=== PATIENT | female | born 1945 | race Caucasian/White ===

== ENCOUNTER → 2016-09-17 | Outpatient (CLI) | payer OTHER ==
[~2016-09-17] MED LIST: AMLO-110 PO; ASPI325T4 PO; ATOR-24 PO; BISO2.5T PO; EPP3/2 IM; IBUP-1050 PO
[2016-09-17 12:44] LABS: ALT/SGPT 38 U/L (12-78); AST/SGOT 18 U/L (15-37); BLOOD UREA NITROGEN 29 mg/dl (7-18); BUN/CREATININE RATIO 26.4 (10-20); CALCIUM 8.8 mg/dl (8.5-10.1); CARBON DIOXIDE 29 mmol/L (21-32); CHLORIDE 107 mmol/L (98-107); GLUCOSE 119 mg/dl (70-99); POTASSIUM 3.9 mmol/L (3.5-5.1); SODIUM 142 mmol/L (136-145)
[2016-09-17 12:50] LABS: ALKALINE PHOSPHATASE 95 U/L (45-117); CHOLESTEROL 137 mg/dl (0-200); CHOLESTEROL/HDL RATIO 2.9; HDL CHOLESTEROL 48 mg/dl; LDL CHOLESTEROL CALCULATED 45 mg/dl; TRIGLYCERIDES 219 mg/dl (0-150); VERY LOW DENSITY LIPOPROT CALC 44 mg/dl
== END | disposition home or self-care (01) ==
LOC: C.LABPVFM 08:42
PROVIDERS: ATTEND Family Medicine
DX: E78.5 Hyperlipidemia, unspecified (principal); I10 Essential (primary) hypertension; R17 Unspecified jaundice; R73.01 Impaired fasting glucose

== ENCOUNTER → 2017-03-30 | Outpatient (CLI) | payer OTHER ==
[2017-03-30 13:03] LABS: ESTIMATED AVERAGE GLUCOSE 117 mg/dl; HA1C FLAG Normal (Normal)
[2017-03-30 14:02] LABS: ALT/SGPT 53 U/L (12-78); AST/SGOT 26 U/L (15-37); BLOOD UREA NITROGEN 53 mg/dl (7-18); BUN/CREATININE RATIO 43.6 (10-20); CARBON DIOXIDE 25 mmol/L (21-32); CHLORIDE 102 mmol/L (98-107); CREATININE 1.21 mg/dl (0.60-1.20); GLUCOSE 99 mg/dl (70-99); POTASSIUM 3.3 mmol/L (3.5-5.1); SODIUM 139 mmol/L (136-145)
[2017-03-30 14:04] LABS: ALKALINE PHOSPHATASE 78 U/L (45-117); CHOLESTEROL 131 mg/dl (0-200); CHOLESTEROL/HDL RATIO 3.3; HDL CHOLESTEROL 40 mg/dl; LDL CHOLESTEROL CALCULATED 60 mg/dl; TRIGLYCERIDES 156 mg/dl (0-150); VERY LOW DENSITY LIPOPROT CALC 31 mg/dl
== END | disposition home or self-care (01) ==
LOC: C.LABPVFM 08:48
PROVIDERS: ATTEND Family Medicine
DX: E78.5 Hyperlipidemia, unspecified (principal); I65.29 Occlusion and stenosis of unspecified carotid artery; I10 Essential (primary) hypertension; R73.01 Impaired fasting glucose; T63.441A Toxic effect of venom of bees, accidental (unintentional), initial encounter

== ENCOUNTER → 2017-04-29 | Outpatient (CLI) | payer OTHER ==
[2017-04-29 13:15] LABS: BLOOD UREA NITROGEN 18 mg/dl (7-18); BUN/CREATININE RATIO 15.4 (10-20); CALCIUM 9.1 mg/dl (8.5-10.1); CARBON DIOXIDE 30 mmol/L (21-32); CHLORIDE 104 mmol/L (98-107); CREATININE 1.16 mg/dl (0.60-1.20); GLUCOSE 109 mg/dl (70-99); POTASSIUM 3.8 mmol/L (3.5-5.1); SODIUM 141 mmol/L (136-145)
== END | disposition home or self-care (01) ==
LOC: C.LABPVFM 09:23
PROVIDERS: ATTEND Family Medicine
DX: N18.3 Chronic kidney disease, stage 3 (moderate) (principal)

== ENCOUNTER → 2017-09-03 | Outpatient (CLI) | payer OTHER ==
--- NOTE | 2017-09-07 12:42 | MAMMOGRAPHY REPORT ---
BILATERAL DIGITAL SCREENING MAMMOGRAM TOMOSYNTHESIS WITH CAD: 09/03/2017 CLINICAL HISTORY: Routine screening. Patient has no complaints. TECHNIQUE: Breast tomosynthesis in addition to standard 2D mammography was performed. Current study was also evaluated with a Computer Aided Detection (CAD) system. COMPARISON: Comparison is made to exams dated: 10/11/2015 mammogram, 11/05/2011 mammogram, 03/04/2010 [facility], and 12/28/2007. BREAST COMPOSITION: There are scattered areas of fibroglandular density in both breasts. FINDINGS: No suspicious masses, calcifications, or areas of architectural distortion are noted in ei ther breast. There has been no significant interval change compared to prior exams. Bilateral benign -appearing calcifications are not significantly changed. IMPRESSION: ACR BI-RADS CATEGORY 2: BENIGN There is no mammographic evidence of malignancy. A 1 year screening mammogram is recommended. The pa tient will receive written notification of the results. Approximately 10% of breast cancers are not detected with mammography. A negative mammographic report should not delay biopsy if a clinically suggestive mass is present. Steph Morgan M.D. /:09/03/2017 15:42:30 Leasing Manager: My RUIZ)(M), [facility] letter sent: Normal 1/2 BI-RADS Code: ACR BI-RADS Category 2: Benign
== END | disposition home or self-care (01) ==
LOC: C.MAMM 11:43
PROVIDERS: ATTEND Family Medicine
DX: Z12.31 Encounter for screening mammogram for malignant neoplasm of breast (principal)

== ENCOUNTER → 2017-09-24 | Outpatient (CLI) | payer OTHER ==
[~2017-09-24] MED LIST changes: +ATOR80TA PO; +BYS/5 PO; +FAMO20TA11 PO; +HYDR25TA5 PO; +LOSA100T65 PO; +MAGN400T6 PO; +OMEG120013 PO; +[UNRECOGNIZED DRUG - CODE] PO
[2017-09-24 13:58] LABS: ALBUMIN 3.7 gm/dl (3.4-5.0); ALT/SGPT 35 U/L (12-78); AST/SGOT 19 U/L (15-37); BLOOD UREA NITROGEN 31 mg/dl (7-18); CALCIUM 9.2 mg/dl (8.5-10.1); CARBON DIOXIDE 27 mmol/L (21-32); CHOLESTEROL 150 mg/dl (0-200); CREATININE 1.17 mg/dl (0.60-1.20); GLUCOSE 104 mg/dl (70-99); SODIUM 138 mmol/L (136-145)
[2017-09-24 14:06] LABS: ALKALINE PHOSPHATASE 87 U/L (45-117); LDL CHOLESTEROL CALCULATED 65 mg/dl; TOTAL PROTEIN 7.3 gm/dl (6.4-8.2)
== END | disposition home or self-care (01) ==
LOC: C.LABPVFM 08:31
PROVIDERS: ATTEND Family Medicine
DX: E78.5 Hyperlipidemia, unspecified (principal); I12.9 Hypertensive chronic kidney disease with stage 1 through stage 4 chronic kidney disease, or unspecified chronic kidney disease; R73.01 Impaired fasting glucose; T63.441A Toxic effect of venom of bees, accidental (unintentional), initial encounter; M65.319 Trigger thumb, unspecified thumb; N18.3 Chronic kidney disease, stage 3 (moderate)

== ENCOUNTER 2017-10-23 04:55 | Inpatient (IN) | payer OTHER ==
[2017-09-28 13:45] VITALS: Ht 157.5 cm; Wt 68.7 kg
--- NOTE | 2017-09-28 14:05 | PAT Medication Instructions ---
Service Date Sep 28, 2017. Current Home Medication List Aspirin (Aspirin), 325 MG PO QAM Atorvastatin (Lipitor), 80 MG PO QAM Epinephrine (Epipen), 0.3 MG IM UD Famotidine (Pepcid), 20 MG PO QD PRN for Heartburn Hydrochlorothiazide (Hydrochlorothiazide), 1 TAB PO QAM Ibuprofen (Advil), 600 MG PO QID PRN Losartan Potassium (Cozaar), 100 MG PO QAM Magnesium Oxide (Mag-Ox), 400 MG PO QAM Multiple Vitamins W/ Minerals (One Daily Multivitamin Wo), 1 TAB PO QAM Nebivolol Hcl (Bystolic), 5 MG PO QAM [place]-3 Fatty Acids (Fish Oil), 1 TAB PO QAM Medication Instructions For Your Scheduled Surgery -Contact your surgeon for instructions for: Aspirin (Aspirin), 325 MG PO QAM Ibuprofen (Advil), 600 MG PO QID PRN -Continue as directed: Epinephrine (Epipen), 0.3 MG IM UD - Hold the following medications 2 weeks prior to surgery: [place]-3 Fatty Acids (Fish Oil), 1 TAB PO QAM - Hold the following medications the morning of surgery: Hydrochlorothiazide (Hydrochlorothiazide), 1 TAB PO QAM Losartan Potassium (Cozaar), 100 MG PO QAM Magnesium Oxide (Mag-Ox), 400 MG PO QAM Multiple Vitamins W/ Minerals (One Daily Multivitamin Wo), 1 TAB PO QAM - Take the following medications the morning of surgery with a sip of water: Atorvastatin (Lipitor), 80 MG PO QAM Famotidine (Pepcid), 20 MG PO QD PRN for Heartburn (if needed) Nebivolol Hcl (Bystolic), 5 MG PO QAM - Take the following medications as scheduled the night before surgery: Famotidine (Pepcid), 20 MG PO QD PRN for Heartburn (if needed) If you have any questions please call us at [phone] or [phone] or [phone]
--- NOTE | 2017-09-28 14:59 | HISTORY & PHYSICAL EXAMINATION ---
DATE OF ADMISSION: 10/23/2017 SUBJECTIVE CHIEF COMPLAINT: Right knee pain. HISTORY OF PRESENT ILLNESS: The patient is a 72-year-old female who presented to the office with right knee pain. She has tried cortisone injections, nonsteroidal anti-inflammatories and physical therapy with no relief. She would like to proceed with a right total knee arthroplasty. PAST MEDICAL HISTORY: Significant for hypertension, hypercholesterolemia, and osteoarthritis. PAST SURGICAL HISTORY: Right knee meniscectomy, carotid endarterectomy, hysterectomy, appendectomy, and tonsillectomy. SOCIAL HISTORY: She drinks 2-3 glasses of wine a week. She denies smoking or tobacco use. She denies IV or illegal drug use. She is currently retired. FAMILY HISTORY: Dad had a history of heart attack. ALLERGIES: SHE IS ALLERGIC TO BEE STINGS. MEDICATIONS: Atorvastatin 80 mg, losartan 100 mg, hydrochlorothiazide 25 mg, aspirin 325 mg, Bystolic 5 mg. REVIEW OF SYSTEMS: She denies headaches, fevers, chills, double vision, blurry vision, sore throat, cough, chest pain, nausea, vomiting, diarrhea, constipation, numbness, tingling, tired, urinary difficulties, thoughts to harm herself or harm others or depression. She does have joint pain and joint stiffness of the right knee. OBJECTIVE: GENERAL APPEARANCE: The patient is a 72-year-old female, sitting in no acute distress. She is well-dressed, well-nourished. She is awake, alert and oriented x3. VITAL SIGNS: She is 5 feet 2 inches tall, 150 pounds. Blood pressure is 138/70. HEENT: Normocephalic, atraumatic. Extraocular movements are intact. Mucosa was moist. No septal deviation. NECK: Supple with no lymphadenopathy, no JVD, no thyromegaly. HEART: Regular rate and rhythm with no murmurs or gallops. LUNGS: Clear to auscultation. No wheezing or rhonchi. ABDOMEN: Soft, nontender, nondistended. Normal bowel sounds, no hepatosplenomegaly. EXTREMITIES: Paying particular attention to the right knee. She is able to extend to 0 degrees and flex to 90 degrees. She has medial joint line tenderness. Ligaments are intact. Strength is 4/5 for flexion and extension. NEUROLOGIC: Cranial nerves II through XII were tested. Cranial nerves II-XII are intact. Pulses were compared bilaterally and were equal. IMPRESSION: Right knee primary osteoarthritis. PLAN: The patient is scheduled for a right total knee arthroplasty. She has failed conservative therapies and would like to proceed with scheduled surgery. Risks and benefits of surgery were discussed today including but not limited to infection, DVT, pain, stiffness, need for revision surgery, failure to relieve all symptoms, progressive arthritis, damage to blood vessels, damage to nerves, anesthesia risks and were all discussed with the patient and she understands these risks and wishes to proceed. All questions were answered to her satisfaction. She will remain on the aspirin 325 mg daily. At discharge, she would like to go home with outpatient physical therapy. JULI
--- NOTE | 2017-09-28 15:03 | DIAGNOSTIC IMAGING REPORT ---
CHEST 2 VIEWS ROUTINE CLINICAL HISTORY: PAT preoperative evaluation COMPARISON STUDY: 04/18/2014 FINDINGS: The bones soft tissues and hemidiaphragms are normal. The cardiomediastinal silhouette is normal. The lungs are clear. The pulmonary vasculature is normal. IMPRESSION: Negative chest. The above report was generated using voice recognition software. It may contain grammatical, syntax or spelling errors. Electronically signed by: Sam Mcnulty M.D. 09/28/2017 3:01 PM Dictated Date/Time: 09/28/2017 3:01 PM
[2017-09-28 15:49] LABS: BASO % 0.2 %; BASO ABS # 0.01 K/uL (0-0.2); EOS % 3.9 %; EOS ABS # 0.23 K/uL (0-0.5); HEMATOCRIT 35.5 % (37-47); HEMOGLOBIN 11.7 g/dL (12.0-16.0); IG# 0.01 K/uL (0.00-0.02); LYMPH % 27.7 %; LYMPH ABS # 1.64 K/uL (1.2-3.4); MEAN CELL VOLUME 96.5 fL (80-100); MEAN CORPUSCULAR HEMOGLOBIN 31.8 pg (25-34); MEAN PLATELET VOLUME 10.7 fL (7.4-10.4); MONO % 7.1 %; MONO ABS # 0.42 K/uL (0.11-0.59); NEUT % 60.9 %; NEUT ABS # 3.61 K/uL (1.4-6.5); PLATELET COUNT 227 K/uL (130-400); RED CELL DISTRIBUTION WIDTH CV 12.5 % (11.5-14.5); RED CELL DISTRIBUTION WIDTH SD 43.7 fL (36.4-46.3); WHITE BLOOD COUNT 5.92 K/uL (4.8-10.8)
[2017-09-28 15:53] LABS: PTT PATIENT 25.1 SECONDS (21.0-31.0)
[2017-09-29 06:01] LABS: HEMOGLOBIN A1C 5.9 % (4.5-5.6)
[~2017-10-23] VITALS: Ht 157.5 cm; Wt 68.7 kg
[2017-10-23] VITALS (10 sets, daily range): BP systolic 138–199; BP diastolic 67–85; PULSE 62–84; TEMP 36.4–36.8; O2SAT 97–100
[~2017-10-23 04:55] MED LIST changes: -AMLO-110 PO; -ATOR-24 PO; -BISO2.5T PO
[2017-10-23] MEDS ORDERED: METOCLOPRAMIDE HCL 10 MG TAB PO SCH (06:00)
[2017-10-23] MEDS ORDERED: CEFAZOLIN 1000MG IV PUSH 7.5 ML IV SCH (06:00)
[2017-10-23] MEDS ORDERED: CeleBREX 200 MG CAP PO SCH (06:00)
[2017-10-23] MEDS ORDERED: FAMOTIDINE 20 MG TAB PO SCH (06:00)
[2017-10-23] MEDS ORDERED: DEXAMETHASONE 4 MG TAB PO SCH (06:00)
[2017-10-23] MEDS ORDERED: LACTATED RINGER'S 1000ML 500 ML IV SCH (06:00)
[2017-10-23] MEDS ORDERED: ROPIVACAINE 5MG/ML 30 ML 150 MG, BUPIVACAINE 0.5% MPF INJ 30 ML, EpINEphrine HCL INJ 0.... INFIL SCH ×8 (06:00)
[2017-10-23] MEDS ORDERED: ACETAMINOPHEN 500 MG TAB PO SCH (06:00)
[2017-10-23] MEDS ORDERED: GABAPENTIN 300 MG CAP PO SCH (06:00)
[2017-10-23] MEDS ORDERED: LACTATED RINGER'S 1000ML 1,000 ML IV SCH (06:00)
[2017-10-23] MEDS ORDERED: POVIDONE-IODINE OP SOLN 30 ML BTL ONE (06:33)
[2017-10-23] MEDS ORDERED: BACITRACIN 50000 UNIT VIAL ONE (06:33)
[2017-10-23] MEDS ORDERED: ORTHO JOINT ANESTHETIC ONE (06:33)
[2017-10-23] MEDS ORDERED: DEXAMETHASONE SOD INJ 4 MG/ML VIAL ONE (06:41)
[2017-10-23] MEDS ORDERED: FENTANYL CITRATE INJ 50 MCG/1 ML 2 ML VIAL ONE (06:42)
[2017-10-23] MEDS ORDERED: MIDAZOLAM HCL 1 MG/ML 2ML VIAL ONE (06:42)
[2017-10-23] MEDS ORDERED: ROPIVACAINE 0.5% 5 MG/ML 30 ML VIAL ONE (06:43)
[2017-10-23] MEDS ORDERED: BUPIVACAINE 0.5 % 5 MG/1 ML PF 10ML VIAL ONE (06:43)
--- NOTE | 2017-10-23 06:53 | History & Physical Bridge Note ---
H&P Re-Evaluation Bridge Note: I have examined the patient, reviewed the History & Physical and in the interval since the performance of the History & Physical I have noted the following changes of clinical significance: No changes noted
[2017-10-23] MEDS ORDERED: PHENYLEPHRINE 100MCG/ML 5ML SYR ONE (07:51)
[2017-10-23] MEDS ORDERED: PROPOFOL IV EMULSION 10 MG/ML 20 ML VIAL ONE (07:51)
--- NOTE | 2017-10-23 08:27 | [facility] Operative Report ---
Operative Report Operative Date October 23, 2017. Pre-Operative Diagnosis Right Knee Primary Osteoarthritis Post-Operative Diagnosis Right Knee Primary Osteoarthritis Procedure(s) Performed Right Total Knee Arthroplasty Surgeon Dr. Amato Fundraising Coordinator Surgeon(s) NATALIIA Alegre/ NATALIIA Narvaez Estimated Blood Loss 20 ml Findings As above Specimens A. Right Knee Bone and Tissue Drains 2 Hemovac Anesthesia Type MAC Spinal Regional Complication(s) none Disposition Recovery Room / PACU Indications The patient is a 72-year-old female long-standing osteoarthritic change of the right knee. She is [id number] lateral compartment. She is failed conservative measures including injection anti-inflammatories and rehab. She wishes to proceed with a right total knee arthroplasty. Description of Procedure Risks benefits and alternatives of surgery including but not limited to infection, DVT, pain, stiffness, need for surgery, damage to blood vessels, damage to nerves or risks of anesthesia were discussed with the patient and they wished to proceed. The patient was identified and the laterality was confirmed and marked. They received a preoperative antibiotic as well as a spinal anesthetic and an abductor canal block. A well-padded tourniquet was applied and then the limb was prepped and draped in standard manner with ChloraPrep. The limb was exsanguinated and the tourniquet was inflated. I made a standard anterior incision. I sharply incised the skin then utilized Bovie electrocautery as well as the aqua mantis to achieve hemostasis. I made a medial parapatellar arthrotomy and mobilized the patella laterally. I then excised the anterior horns of the medial and lateral meniscus as well as the infrapatellar fat pad. I elevated a portion of the MCL off of the tibia. I then pinned into place a patient-matched distal femoral cutting guide and made my distal femoral resection. I then pinned into place the 5 in 1 femoral cutting guide. I made my anterior, posterior and chamfer cuts. I then excised the cruciates and the remaining portions of the menisci. I then pinned into place a patient- matched tibial cutting guide and made my tibial resection. I then pinned into place the tibial plate a utilizing alignment agnieszka to confirm rotation. I then cut for the post. Utilizing a lamina candle molder hand and I then removed posterior osteophytes off the femur. I then placed a trial femur into position and cut for the trochlear component. I then sequentially trialed to size the polyethylene until there was good soft tissue balancing and range of motion. I then prepared the patella with a freehand cut utilizing sagittal saw. I sized and drilled for the patella. There was good tracking to the patella no lateral release was needed. All the trial components were removed. The deep tissues were anesthetized with an ortho mix solution. Then with Simplex HV with gentamicin cement, I cemented my definitive components. Definitive components, Michaud and Nephew Valdemar 2: Femur 1 Tibia 1 Poly 11 Patella 29 oval A betadine soak was performed. A deep drain was placed. The arthrotomy was closed with interrupted #1 Vicryl suture subcutaneous tissue was closed with interrupted 2-0 Vicryl suture. The skin was closed with with lidia. A Silverlon was placed. Sterile dressings were applied. All needle and sponge counts were correct at the end of the procedure patient was transferred to the PACU in stable condition without apparent complication. The PA-C was necessary for assistance with procedure for assistance in positioning, prepping, draping, retraction and closure. I attest to the content of the Intraoperative Record and any orders documented therein. Any exceptions are noted below.
[2017-10-23] MEDS ORDERED: MoRPHine SULFATE 4 MG/ML 1 ML CARP\\VIAL IV PRN (08:30)
[2017-10-23] MEDS ORDERED: FAMOTIDINE 20 MG TAB PO PRN (08:30)
[2017-10-23] MEDS ORDERED: ALUMINUM/MAGNESIUM/SIMETH (MAALOX MAX) 30 ML UDC PO PRN (08:30)
[2017-10-23] MEDS ORDERED: DiphenhydrAMINE HCL 50 MG/ML VIAL IV PRN (08:30)
[2017-10-23] MEDS ORDERED: METOCLOPRAMIDE HCL INJ 5 MG/ML 2 ML VIAL IV PRN (08:30)
[2017-10-23] MEDS ORDERED: CEFAZOLIN IV 1,000 MG in DEXTROSE 5% 50ML 50 ML IV SCH (08:30)
[2017-10-23] MEDS ORDERED: EPINEPHRINE ADULT AUTO-INJECT 0.3 MG SYR IM PRN (08:30)
[2017-10-23] MEDS ORDERED: ONDANSETRON INJ 2 MG/ML 2 ML VIAL IV PRN ×2 (08:30→08:45)
[2017-10-23] MEDS ORDERED: MAGNESIUM HYDROXIDE SUSP 30 ML UDC PO PRN (08:30)
[2017-10-23] MEDS ORDERED: LABETALOL HCL IV 5 MG/ML 20ML IV PRN (08:45)
[2017-10-23] MEDS ORDERED: ATROPINE SULFATE 0.1 MG/ML 5ML SYR IV PRN (08:45)
[2017-10-23] MEDS ORDERED: EpHEDrine SULFATE INJ 50 MG/ML AMP IV PRN (08:45)
[2017-10-23] MEDS ORDERED: MEPERIDINE HCL 25 MG/ML CARP IV PRN (08:45)
[2017-10-23] MEDS ORDERED: HYDROmorphone INJ 0.5 MG/0.5 ML SYR IV PRN (08:45)
[2017-10-23] MEDS ORDERED: FENTANYL CITRATE INJ 50 MCG/1 ML 2 ML VIAL IV PRN (08:45)
[2017-10-23] MEDS ORDERED: ASPIRIN 325 MG ECTAB PO SCH (09:00)
[2017-10-23] MEDS ORDERED: MULTIVITAMIN TAB PO SCH (09:00)
[2017-10-23] MEDS ORDERED: ATORVASTATIN 40 MG TAB PO SCH (09:00)
--- NOTE | 2017-10-23 09:39 | DIAGNOSTIC IMAGING REPORT ---
R KNEE 1 OR 2 VIEWS ROUTINE CLINICAL HISTORY: 72 years-old Female presenting with AP/LATERAL IN PACU RIGHT KNEE. TECHNIQUE: Frontal and crosstable lateral views of the right knee were obtained. COMPARISON: 10/20/2012. FINDINGS: There has been interval total right knee arthroplasty with patellar resurfacing. A surgical drain is in place. Skin lidia noted as well as soft tissue and intra-articular emphysema. No acute fracture or malalignment. No hardware complication. IMPRESSION: Expected postsurgical appearance status post total right knee arthroplasty with patellar resurfacing. Electronically signed by: Ricardo Hicks M.D. 10/23/2017 9:38 AM Dictated Date/Time: 10/23/2017 9:37 AM
--- NOTE | 2017-10-23 10:33 | Anesthesiology Progress Note ---
Anesthesia Post Op Note Date & Time October 23, 2017 at 10:33 Vital Signs Pain Intensity: 0 Vital Signs Past 12 Hours Date Time Temp Pulse Resp B/P (MAP) Pulse Ox O2 Delivery O2 Flow Rate FiO2 10/23/17 09:45 70 15 139/68 99 Nasal Cannula 2 10/23/17 09:35 36.3 68 12 132/76 99 Nasal Cannula 2 10/23/17 09:25 66 15 157/75 100 Nasal Cannula 2 10/23/17 09:15 65 19 135/64 100 Nasal Cannula 2 10/23/17 09:05 71 15 134/72 99 Nasal Cannula 2 10/23/17 08:55 36.3 70 14 125/60 96 Nasal Cannula 2 10/23/17 05:31 36.5 63 18 199/85 99 Room Air Notes Mental Status: alert / awake / arousable, participated in evaluation Pt Amnestic to Procedure: Yes Nausea / Vomiting: adequately controlled Pain: adequately controlled Airway Patency, RR, SpO2: stable & adequate BP & HR: stable & adequate Hydration State: stable & adequate Neuraxial Anesthesia: was administered, sensory block is resolving Anesthetic Complications: no major complications apparent
[2017-10-23] MEDS: PANTOprazole SOD 40 MG TAB PO SCH (11:18)
[2017-10-23] MEDS: CEROVITE ADV FORMULA TAB PO SCH (11:20)
[2017-10-23] MEDS: LOSARTAN POTASSIUM 50 MG TAB PO SCH (11:21)
[2017-10-23] MEDS: DOCUSATE SODIUM 100 MG CAP PO SCH ×2 (11:21→20:47)
[2017-10-23] MEDS: FERROUS GLUCONATE 324 MG TAB PO SCH ×2 (11:21→17:41)
[2017-10-23] MEDS: MAGNESIUM OXIDE 400 MG TAB PO SCH (11:22)
[2017-10-23] MEDS: HYDROCHLOROTHIAZIDE 25 MG TAB PO SCH (11:22)
[2017-10-23] MEDS: KETOROLAC TROMETHAMINE 15 MG/ML VIAL IV. SCH ×3 (11:23→23:59)
[2017-10-23] MEDS: D5W AND 1/2NSS + 20MEQ KCL 1,000 ML IV SCH ×2 (13:07→23:57)
[2017-10-23] MEDS: ACETAMINOPHEN 500 MG TAB PO SCH ×2 (13:41→22:08)
[2017-10-23] MEDS: CEFAZOLIN IV 1,000 MG in SYRINGE 0 ML IV SCH ×2 (15:34→23:59)
[2017-10-23] MEDS: ASPIRIN 325 MG ECTAB PO SCH (20:47)
[2017-10-24 03:53] VITALS: BP 145/76; PULSE 65; TEMP 36.5; O2SAT 99
[2017-10-24] MEDS: KETOROLAC TROMETHAMINE 15 MG/ML VIAL IV. SCH (06:16)
[2017-10-24] MEDS: ACETAMINOPHEN 500 MG TAB PO SCH (06:17)
[2017-10-24 06:28] LABS: HEMATOCRIT 27.3 % (37-47); HEMOGLOBIN 9.5 g/dL (12.0-16.0); MEAN CELL VOLUME 91.9 fL (80-100); MEAN CORPUSCULAR HGB CONC 34.8 g/dl (32-36); MEAN PLATELET VOLUME 10.3 fL (7.4-10.4); PLATELET COUNT 204 K/uL (130-400); RED CELL DISTRIBUTION WIDTH CV 11.7 % (11.5-14.5); RED CELL DISTRIBUTION WIDTH SD 39.4 fL (36.4-46.3); WHITE BLOOD COUNT 16.95 K/uL (4.8-10.8)
[2017-10-24 06:51] LABS: CALCIUM 7.8 mg/dl (8.5-10.1); CREATININE 1.36 mg/dl (0.60-1.20); POTASSIUM 4.2 mmol/L (3.5-5.1)
[2017-10-24] MEDS ORDERED: DEXAMETHASONE 4 MG TAB PO SCH (07:30)
[2017-10-24 07:42] VITALS: BP 150/76; PULSE 61; TEMP 36.7; O2SAT 100
[2017-10-24] MEDS: LOSARTAN POTASSIUM 50 MG TAB PO SCH (08:19)
[2017-10-24] MEDS: PANTOprazole SOD 40 MG TAB PO SCH (08:20)
[2017-10-24] MEDS: FERROUS GLUCONATE 324 MG TAB PO SCH ×2 (08:20→12:30)
[2017-10-24] MEDS: HYDROCHLOROTHIAZIDE 25 MG TAB PO SCH (08:20)
[2017-10-24] MEDS: ASPIRIN 325 MG ECTAB PO SCH (08:20)
[2017-10-24] MEDS: MAGNESIUM OXIDE 400 MG TAB PO SCH (08:20)
[2017-10-24] MEDS: CEROVITE ADV FORMULA TAB PO SCH (08:20)
[2017-10-24] MEDS: DOCUSATE SODIUM 100 MG CAP PO SCH (08:21)
[2017-10-24] MEDS: OXYCODONE HCL IR 5 MG TAB (IMMEDIATE RELEASE) PO PRN ×2 (08:22→13:19)
[2017-10-24] MEDS ORDERED: ATORVASTATIN 40 MG TAB PO SCH (09:00)
--- NOTE | 2017-10-24 10:22 | Orthopedic Progress Note ---
Orthopedic Progress Note Date of Service October 24, 2017. Subjective Post OP Day: 1 Reports: feeling well Objective N/V intact, dressing C/D/I (Hemovac in place), toes mobile Date Time Temp Pulse Resp B/P (MAP) Pulse Ox O2 Delivery O2 Flow Rate FiO2 10/24/17 07:42 36.7 61 16 150/76 (100) 100 Room Air 10/24/17 07:35 Room Air 10/24/17 03:53 36.5 65 18 145/76 (99) 99 Room Air 10/24/17 00:00 Room Air 10/23/17 22:45 36.6 68 18 147/75 (99) 98 Room Air 10/23/17 19:39 36.8 67 18 158/70 (99) 100 Room Air 10/23/17 15:30 97 Room Air 10/23/17 15:11 36.5 63 18 148/75 (99) 97 Room Air 10/23/17 13:00 36.4 67 17 145/77 (99) 99 Room Air 10/23/17 12:10 70 19 153/80 (104) 100 Room Air 10/23/17 11:05 36.4 62 16 151/78 (102) 99 Room Air 10/23/17 11:04 36.5 62 16 138/80 (99) 100 Nasal Cannula 2.0 10/23/17 11:03 Nasal Cannula 2.0 10/23/17 10:34 84 17 147/67 (93) 100 Room Air Laboratory Results 24 Hours: Test 10/24/17 06:01 Hematocrit 27.3 % Hemoglobin 9.5 g/dL Assessment & Plan Assessment: 72 yo female stable POD #1 s/p right TKA Plan: 1. Med management 2. DVT prophylaxis- ASA, SCDs 3. PT/OT 4. D/C planning- home w/ OPPT
[2017-10-24] MEDS ORDERED: ACET-24 PO (10:23)
[2017-10-24] MEDS ORDERED: CLB200 PO (10:23)
[2017-10-24] MEDS ORDERED: RXC5 PO (10:23)
[2017-10-24] MEDS ORDERED: ASPEC325 PO (10:23)
--- NOTE | 2017-10-24 10:25 | Discharge Instructions ---
Discharge Instructions Date of Service October 24, 2017. Admission Reason for Admission: Right Knee Osteoarthritis Discharge Discharge Diagnosis / Problem: Right knee arthritis Discharge Goals Goal(s): Decrease discomfort, Improve function Activity Recommendations Activity Limitations: as noted below Weightbearing Status: Right weightbearing (as tolerated) . Instructions / Follow-Up Instructions / Follow-Up ACTIVITY RECOMMENDATIONS: SELF CARE INSTRUCTIONS AFTER TOTAL KNEE REPLACEMENT A. You may need to continue a physical therapy program after discharge from the hospital. There are several options available to you. Your doctor will assist you in selecting the best one for you. 1. An out-patient facility 2 to 3 times a week for therapy or home therapy. 2. Continue working on all exercises taught to you in the hospital. Your goals should be to increase bending of your knee to 90 degrees and beyond and to fully straighten your knee. B. You may progress at your own pace from walking with a walker or crutches to a cane; then to no assistive devices. C. Make walking a part of your daily routine. Be up as much as comfortable with rest periods throughout the day. Rest with leg elevation is very important. Use the ice wrap frequently for the first 3-4 weeks. D. There are no restrictions on activities. You may ride in a car, shop, participate in all source collection manager and all social activities. E. Wear the long elastic stockings (CESAR hose) 20 hours a day for 2 weeks after surgery. They can be removed several times a day for laundering and for a bath. F. You may shower, no tub baths until cleared by your doctor. SPECIAL CARE INSTRUCTIONS: VERY IMPORTANT TO READ AND REVIEW A. There are a few signs you need to watch for after you are home. Call [facility] if you notice any of the followin. Increased severe knee pain. Some pain is expected especially when you exercise. 2. Increased swelling in your leg or knee; pain or swelling of the calf muscle in either lower leg. 3. Any fluid drainage from the incision. 4. Shortness of breath or chest pain. B. Please call [facility] at if you have any concerns or questions about your operation or recovery. The doctor or his nurse will return your call promptly. C. You must take antibiotics before dental work, bladder, bowel or other surgery. Your doctor will provide you with a permanent care to carry describing this precaution. IMPORTANT: * REMEMBER TO TAKE ASPIRIN, 81 MG, TWICE DAILY FOR 4 WEEKS UNLESS OTHERWISE DIRECTED. THIS IS YOUR BLOOD THINNER. * HIGH RISK PATIENTS MAY BE PRESCRIBED A STRONGER BLOOD THINNER. THIS WILL BE PROVIDED AT DISCHARGE. * CALL IF INCREASED PAIN, REDNESS, DRAINAGE OR FEVER GREATER THAT 101. * WEAR CESAR HOSE 20 HOURS PER DAY FOR 2 WEEKS. Silverlon- This is a large adhesive bandage that contains silver ions. This helps your incision heal by fighting off bacteria and protecting it from the outside environment. You are permitted to shower with this dressing. This will remain on your incision for 7 days and then should be removed. Some visible blood or drainage through the dressing window is normal. If there is significant drainage or leaking noted before the 7 days notify your doctor's office immediately. Once removed, keep incision clean and dry. If there is any drainage or redness noted, please call your surgeon. FOLLOW UP VISIT: If appointment is not already scheduled: Please call [facility] to make a follow-up appointment for 2 weeks after your surgery at . Current Hospital Diet Patient's current hospital diet: Regular Diet Discharge Diet Recommended Diet: Regular Diet Procedures Procedures Performed: Right Total Knee Arthroplasty Pending Studies Studies pending at discharge: no Laboratory Results Hemoglobin A1c Test 09/28/17 14:34 Range/Units Estimated Average Glucose 123 mg/dl Hemoglobin A1c 5.9 H 4.5-5.6 % Lipid Panel Test 09/24/17 08:38 Range/Units Triglycerides Level 184 H 0-150 mg/dl Cholesterol Level 150 0-200 mg/dl HDL Cholesterol 48 mg/dl Cholesterol/HDL Ratio 3.1 LDL Cholesterol, Calculated 65 mg/dl Medical Emergencies . Who to Call and When: Medical Emergencies: If at any time you feel your situation is an emergency, please call 911 immediately. . Non-Emergent Contact Non-Emergency issues call your: Surgeon Call Non-Emergent contact if: temperature is above 101.5, your pain is not controlled, wound has increased drainage, wound has increased redness . "Provider Documentation" section prepared by Eriberto Vyas PA-C. . [place] Drug Monitoring Program Search Results: patient reviewed within database, no issues identified
[2017-10-24 12:28] VITALS: BP 150/76; PULSE 61; TEMP 36.7; O2SAT 100
[2017-10-24] MEDS ORDERED: CeleBREX 200 MG CAP PO SCH (21:00)
--- NOTE | 2017-10-27 18:46 | DISCHARGE SUMMARY ---
DISCHARGE DIAGNOSIS: Degenerative joint disease, right knee. SECONDARY DIAGNOSES: Hypertension, hypercholesterolemia, osteoarthritis. CONSULTS: None. COMPLICATIONS: None. PROCEDURES: Right total knee arthroplasty performed by Dr. Amato on 10/23/2017. BRIEF HISTORY: As dictated in the history and physical. HOSPITAL SUMMARY: The patient was admitted on the above date and had the above mentioned surgery performed which she tolerated well. On the first postoperative day, she was feeling well and had no complaints. Neurovascularly intact. Dressings clean, dry, and intact. Toes were mobile. Vital signs were stable, and she was afebrile. Hemoglobin was 9.5. The patient was started on physical therapy protocol and continued on DVT prophylaxis and pain management. In physical therapy, she was obtaining 95 degrees of flexion of the knee. She was ambulating 150 feet with a rolling walker and going up and down a 6-inch step x5 with a hand rail. She was remaining stable and progressing well. Pain was controlled, and it was felt that she could be discharged to home on 10/24/2017. For further review, please see chart. LABORATORY AND X-RAY DATA: As per chart. DISCHARGE INSTRUCTIONS: The patient will be discharged to home in satisfactory condition on 10/24/2017. Diet: Regular. Activity: Follow TK instruction sheets and special care instructions as noted. Weightbearing as tolerated, right lower extremity. Follow up with Dr. Amato in 2 weeks. The patient to call for appointment if one has not been made for you. DISCHARGE MEDICATIONS: Acetaminophen 1000 mg p.o. q.8 h. for 14 days, aspirin 325 mg p.o. b.i.d. for 20 days, Celebrex 200 mg p.o. b.i.d., oxycodone 5-10 mg p.o. q.4-6 h. p.r.n. pain. Resume home medications as listed. After 28 days of taking aspirin b.i.d., resume once daily dosing and stop taking ibuprofen.
== END 2017-10-24 13:34 | disposition home or self-care (01) | DRG 470 ==
LOC: C.ACU 04:55 → C.3E 06:45 → ENRESERV 09:19
PROVIDERS: ADMIT Orthopaedic Surgery; ATTEND Orthopaedic Surgery
PROC: 0SRC0J9 Replacement of Right Knee Joint with Synthetic Substitute, Cemented, Open Approach (ICD-10-PCS; principal; 2017-10-23 07:00)
DX: M17.11 Unilateral primary osteoarthritis, right knee (principal); I10 Essential (primary) hypertension; E78.00 Pure hypercholesterolemia, unspecified; Z79.899 Other long term (current) drug therapy; Z79.82 Long term (current) use of aspirin; Z82.49 Family history of ischemic heart disease and other diseases of the circulatory system; Z91.030 Bee allergy status

== ENCOUNTER 2023-04-16 06:46 | Inpatient (IN) ==
--- NOTE | 2023-03-31 11:49 | PAT Medication Instructions ---
Medication Instructions Date of Service March 31, 2023 Home Medications multivitamin (Multiple Vitamins tablet) 1 tab PO QAM omega-3 acid ethyl esters 1 gram capsule 1 cap PO QAM cholecalciferol (vitamin D3) 25 mcg (1,000 unit) capsule 1,000 units PO QAM famotidine 20 mg tablet 20 mg PO DAILY PRN mecobalamin (vitamin B12) 1,000 mcg disintegrating tablet,sublingual 1,000 mcg sublingual QAM Beet Root 1,000 mg PO QAM turmeric root extract 500 mg capsule 1,000 mg PO QAM magnesium citrate,mag oxide 250 mg capsule 250 mg PO QAM aspirin 81 mg capsule 81 mg PO QAM atorvastatin 80 mg tablet (Lipitor) 80 mg PO QAM epinephrine 0.3 mg/0.3 mL injection, auto-injector (EpiPen) 0.3 mg IM Q4H PRN ibuprofen 200 mg tablet 600 mg PO Q6H PRN losartan 100 mg-hydrochlorothiazide 25 mg tablet 1 tab PO QPM metoprolol succinate 50 mg tablet,extended release 24 hr 50 mg PO QPM Continue as directed famotidine 20 mg tablet 20 mg PO DAILY PRN(if needed) epinephrine 0.3 mg/0.3 mL injection, auto-injector (EpiPen) 0.3 mg IM Q4H PRN(if needed) ASK your surgeon for instructions ibuprofen 200 mg tablet 600 mg PO Q6H PRN ASK your prescriber and surgeon aspirin 81 mg capsule 81 mg PO QAM STOP taking 2 weeks before surgery (or as soon as possible if surgery is within 2 weeks) omega-3 acid ethyl esters 1 gram capsule 1 cap PO QAM Beet Root 1,000 mg PO QAM turmeric root extract 500 mg capsule 1,000 mg PO QAM DO NOT take the morning of surgery multivitamin (Multiple Vitamins tablet) 1 tab PO QAM cholecalciferol (vitamin D3) 25 mcg (1,000 unit) capsule 1,000 units PO QAM mecobalamin (vitamin B12) 1,000 mcg disintegrating tablet,sublingual 1,000 mcg sublingual QAM magnesium citrate,mag oxide 250 mg capsule 250 mg PO QAM Take morning of surgery With a small sip of water, OTHERWISE NOTHING TO EAT OR DRINK AFTER MIDNIGHT: atorvastatin 80 mg tablet (Lipitor) 80 mg PO QAM Take evening before surgery losartan 100 mg-hydrochlorothiazide 25 mg tablet 1 tab PO QPM metoprolol succinate 50 mg tablet,extended release 24 hr 50 mg PO QPM Other Notes If you have any questions please call us at [phone] or [phone] or [phone] or [phone]
--- NOTE | 2023-04-02 11:09 | Anesthesiology Consultation ---
Date of Service April 02, 2023 Assessment & Plan (1) Encounter for pre-operative examination: - Infectious disease screening: Per assessment on 04/02/23: No known infectious disease contacts or current infectious disease symptoms. No noted Covid positive test result in past 90 days. - Outpatient joint assessment: Pt currently scheduled for inpatient pathway. If surgeon requests review for outpatient joint pathway, patient is not recommended candidate for outpatient joint program from anesthesia standpoint based upon available information. - S/P Right TKA (10/23/17): SAB at L3-4 (x1 attempt) + PNB at [facility] - Patient acceptable risk for surgery pending surgeon-ordered cardiology preop evaluation (MT cardio, appt 04/10). Chart Review Chart Review: Patient seen in Pre Admission Testing Teaching & Discussion Pre-Anesthesia Teaching/Discussion Notes: Instructed NPO after midnight before surgery,except medications with 15 cc of water. Medication instructions provided according to the PAT guidelines. History Surgery Operation Date: 04/16/23 11:00 Proposed Procedures p Left Reverse Total Shoulder Arthroplasty - Camacho Emanuel M.D. Height/Weight Height: 5 ft 2 in Weight: 65.2 kg Allergies Allergy/AdvReac Type Severity Reaction Status Date / Time bee venom protein (honey bee) Allergy Intermediate Anaphylaxis Verified 03/26/23 14:17 Medications Home Medications Medication Instructions Recorded Confirmed Last Taken multivitamin (Multiple Vitamins 1 tab PO QAM 04/04/19 03/26/23 Unknown tablet) omega-3 acid ethyl esters 1 gram 1 cap PO QAM 04/04/19 03/26/23 Unknown capsule cholecalciferol (vitamin D3) 25 1,000 units PO QAM 04/20/19 03/26/23 Unknown mcg (1,000 unit) capsule famotidine 20 mg tablet 20 mg PO DAILY PRN Heartburn 04/20/19 03/26/23 Unknown mecobalamin (vitamin B12) 1,000 1,000 mcg sublingual QAM 04/20/19 03/26/23 Unknown mcg disintegrating tablet,sublingual Beet Root 1,000 mg PO QAM 08/10/20 03/26/23 Unknown turmeric root extract 500 mg 1,000 mg PO QAM 08/10/20 03/26/23 Unknown capsule magnesium citrate,mag oxide 250 mg 250 mg PO QAM 10/28/22 03/26/23 Unknown capsule aspirin 81 mg capsule 81 mg PO QAM 03/26/23 03/26/23 Unknown atorvastatin 80 mg tablet (Lipitor) 80 mg PO QAM 03/26/23 03/26/23 Unknown epinephrine 0.3 mg/0.3 mL 0.3 mg IM Q4H PRN Allergic Reaction 03/26/23 03/26/23 Unknown injection, auto-injector (EpiPen) ibuprofen 200 mg tablet 600 mg PO Q6H PRN Pain 03/26/23 03/26/23 Unknown losartan 100 1 tab PO QPM 03/26/23 03/26/23 Unknown mg-hydrochlorothiazide 25 mg tablet metoprolol succinate 50 mg 50 mg PO QPM 03/26/23 03/26/23 Unknown tablet,extended release 24 hr Past Medical History Medical History Abnormal renal function Hx fluctuating creatinine levels, most recent creatinine 12/2022 1.21 Aortic valve disorder Echo 05/2022: Mild aortic stenosis (MIGUE 1.5cm2, MG 11.7mmhg) Carotid artery stenosis s/p Left CEA (2004) Carotid duplex 08/11/22: 30-50% re-stenosis LICA s/p CEA (Note: velocities may be overesterimated due to vessel tortuosity and/or compensatory flow). YESI occlusion. Elevated hemoglobin A1c 03/2023 A1C 6.0% Exercise / Class Metabolic Activity II 4-5 Yardwork/Stairs/Walk up hill (one FS (no CP, no SOB)) Past Family History Family History Father Myocardial infarction Brother Myocardial infarction Mother Tuberculosis Coronary heart disease Emphysema lung Other No family history of adverse response to anesthesia Denies family history of Ovarian cancer Prostate cancer Breast cancer Colorectal cancer Past Surgical History Surgical History H/O carotid endarterectomy Left (2004) History of appendectomy History of bilateral tubal ligation History of cataract extraction R/L History of colonoscopy History of tonsillectomy and adenoidectomy History of tooth extraction History of wisdom tooth extraction Hx of hysterectomy DENI BSO 2011 Hx of toe surgery Hx of total knee replacement Right TKA (10/23/17): SAB at L3-4 (x1 attempt) + PNB at [facility] Past Anesthesia History No Hx of Anesthesia Complications and No Family Hx of Anesthesia Complications History of PONV No Hx of PONV and No Hx of Motion Sickness Social History Smoking Status: Never smoker Do You Dip or Chew Tobacco: No Hx Alcohol Use: Yes Alcohol type: beer and wine alcohol intake frequency: a few times a month Hx Substance Use: No substance use type: does not use Review of Systems Patient denies chest pain, shortness of breath, dyspnea on exertion, fever, chills, cough, wheezing, palpitations. Physical Exam Vital Signs VITALS BP 173/64 (Per patient, BP typically higher in office settings. Monitors closely at home > 143/76 on home reading from earlier today 04/02/23) P 58 TEMP 97.8 SP02 99%RA RESP 16 PHYSICAL Full cervical extension range of motion. Full TMJ range of motion. TMD 3.5 finger breaths Mallampati Score 1 Dentition: missing sides/molars, root canal repair Lungs: clear throughout to auscultation Cardiac: regular rate and rhythm, III/ systolic murmur (with left sided carotid bruit vs radiation) Spine: normal Extremities: no LE edema Lab Results Anesthesia Preop Results Results Anesthesia Widget: WBC 7.07 K/ul (4.8-10.8) 04/02/23 Hgb 12.2 g/dl (12.0-16.0) 04/02/23 Hct 36.3 % (37.0-47.0) L 04/02/23 Plt 244 K/uL (130-400) 04/02/23 Na 138 mmol/L (136-145) 04/02/23 K 4.0 mmol/L (3.5-5.1) 04/02/23 Cl 102 mmol/L (98-107) 04/02/23 CO2 31 mmol/L (21-32) 04/02/23 BUN 28 mg/dl (6-23) H 04/02/23 Creat 1.12 mg/dl (0.6-1.2) 04/02/23 Glucose Level 94 mg/dl (70-99(Fasting)) 04/02/23 PT 10.4 Seconds (9.0-12.0) 04/02/23 PTT 27.2 Seconds (21.0-31.0) 04/02/23 INR 0.9 (0.9-1.1) 04/02/23 HA1c 6.0 % (4.5-5.6) H 04/02/23 Urine Color Yellow 04/02/23 Urine Appearance Clear (Clear) 04/02/23 Urine pH 8.0 (4.5-7.5) H 04/02/23 Urine Specific [place] 1.016 (1.000-1.030) 04/02/23 Urine Protein Negative (Negative) 04/02/23 Urine Glucose (UA) Negative (Negative) 04/02/23 Urine Ketones Negative (Negative) 04/02/23 Urine Blood Negative (Negative) 04/02/23 Urine Nitrite Negative (Negative) 04/02/23 Urine Bilirubin Negative (Negative) 04/02/23 Urine Urobilinogen Negative (Negative) 04/02/23 Urine Leukocyte Esterase 1+ (Negative) H 04/02/23 Urine WBC (Auto) 5-10 /hpf (0-5) H 04/02/23 Urine RBC (Auto) 0-4 /hpf (0-4) 04/02/23 Urine Hyaline Casts (Auto) 1-5 /lpf (0-5) 04/02/23 Urine Epithelial Cells (Auto) 5-10 /lpf (0-5) H 04/02/23 Urine Bacteria (Auto) Negative (Negative) 04/02/23 Blood Type O Negative 04/02/23 Antibody Screen NEGATIVE 04/02/23 Testing Electrocardiogram Date: 04/02/23 SB at 54bpm. "Otherwise normal ECG" No significant change compared to 09/28/2017 per child nutrition director comparison* Chest X-Ray Date: 04/02/23 Findings: + NAD Echocardiogram Date: 06/11/22 EF 55-60%. Mild concentric LVH. Trace to mild AR. Mild MR. Grade I DD. Mild aortic stenosis (MIGUE 1.5 cm, MG 11.7 mmHg). No significant change compared to 07/08/2021 per report. Other Testing Carotid duplex Date: 08/11/22 Right ICA occlusion. 30-50% restenosis of the LICA, status post CEA (note: Velocities may be overestimated due to vessel tortuosity and/or compensatory flow). Antegrade flow noted in bilateral vertebral arteries.
--- NOTE | 2023-04-15 15:53 | History & Physical Report ---
Date of Service April 15, 2023 Assessment & Plan (1) Rotator cuff tear arthropathy of left shoulder: Plan: She has a chronic, massive, retracted, irrepairable rotator cuff tear with early cuff tear arthropathy. We discussed further conservative management with repeat injections and physical therapy versus definitive surgical intervention. She has gotten minimal improvement from previous injection, and would much prefer the latter at this point. I advised her that her only viable surgical treatment option at this point would be a reverse total shoulder arthroplasty. Rotator cuff repair is not an option at this point. She voiced understanding and agreement this plan, and wishes to proceed with this. We will need to get cardiac clearance for her. Risks, benefits, and alternatives of surgery were explained in detail. The surgical procedure, as well as postoperative recovery and rehabilitation, was also explained in detail. Risks include bleeding; infection; damage to surrounding structures such as nerves, blood vessels, and tendons that run in the area; persistent pain or stiffness; hardware failure; dislocation; brachial plexus palsy; blood clots; or need for further surgery. The patient understands all of this and wishes to proceed with surgery. Risks will be reviewed on the day of surgery and informed consent obtained. History of Present Illness Chief Complaint: Left shoulder pain and weakness Primary Care Provider: Naina Hernandez MD Ms. Foss returns for her left shoulder. I have previously seen her for her right. Her left shoulder pain started around September 2022 without any obvious injury but with gradual progressive worsening. She received a subacromial steroid injection from NATALIIA Vyas in October with no significant improvement in her pain. She has had noticeable weakness and progressively worsening pain in the left shoulder. It is currently waking her up at night. Her left shoulder is hurting her much worse than her right is right now. She has peripheral vascular disease and has had bilateral carotid endarterectomies many years ago. She is followed regularly by her gis scientist, Dr. Plascencia. She denies any coronary artery disease of moderate cardio infarction. She takes aspirin 81 mg daily. She denies history of diabetes. Allergies Allergy/AdvReac Type Severity Reaction Status Date / Time bee venom protein (honey bee) Allergy Intermediate Anaphylaxis Verified 04/10/23 10:03 Home Medications Medication Instructions Recorded Confirmed Type multivitamin (Multiple Vitamins 1 tab PO QAM 04/04/19 04/10/23 History tablet) omega-3 acid ethyl esters 1 gram 1 cap PO QAM 04/04/19 04/10/23 History capsule cholecalciferol (vitamin D3) 25 1,000 units PO QAM 04/20/19 04/10/23 History mcg (1,000 unit) capsule famotidine 20 mg tablet 20 mg PO DAILY PRN Heartburn 04/20/19 04/10/23 History mecobalamin (vitamin B12) 1,000 1,000 mcg sublingual QAM 04/20/19 04/10/23 History mcg disintegrating tablet,sublingual Beet Root 1,000 mg PO QAM 08/10/20 04/10/23 History turmeric root extract 500 mg 1,000 mg PO QAM 08/10/20 04/10/23 History capsule magnesium citrate,mag oxide 250 mg 250 mg PO QAM 10/28/22 04/10/23 History capsule aspirin 81 mg capsule 81 mg PO QAM 03/26/23 04/10/23 History atorvastatin 80 mg tablet (Lipitor) 80 mg PO QAM 03/26/23 04/10/23 History epinephrine 0.3 mg/0.3 mL 0.3 mg IM Q4H PRN Allergic Reaction 03/26/23 04/10/23 History injection, auto-injector (EpiPen) ibuprofen 200 mg tablet 600 mg PO Q6H PRN Pain 03/26/23 04/10/23 History losartan 100 1 tab PO QPM 03/26/23 04/10/23 History mg-hydrochlorothiazide 25 mg tablet metoprolol succinate 50 mg 50 mg PO QPM 03/26/23 04/10/23 History tablet,extended release 24 hr Past Med/Surg History Medical History Abnormal renal function Aortic valve disorder Carotid artery stenosis Elevated hemoglobin A1c Surgical History H/O carotid endarterectomy History of appendectomy History of bilateral tubal ligation History of cataract extraction History of colonoscopy History of tonsillectomy and adenoidectomy History of tooth extraction History of wisdom tooth extraction Hx of hysterectomy Hx of toe surgery Hx of total knee replacement Family History Father Myocardial infarction Brother Myocardial infarction Mother Tuberculosis Coronary heart disease Emphysema lung Other No family history of adverse response to anesthesia Denies family history of Ovarian cancer Prostate cancer Breast cancer Colorectal cancer Social History Smoking Status: Never smoker Second Hand Exposure: No; Do You Dip or Chew Tobacco: No; Tobacco Cessation Education Requested by Patient: No Hx Alcohol Use: Yes Alcohol type: beer and wine Alcohol Intake Frequency: 2-4 x/Month Hx Substance Use: No Preferred Language: Georgian Communication Ability: Effective Oil Expert Required: No Beliefs That Will Affect Care: None marital status: Current Living Situation: Spouse current occupational status: retired How many Children do You have: 3 Other Information That Helps Us Care for You: No Feels Safe at Home: Yes Safety Concerns: Feels Safe At This Time Childhood Exposure to Second-Hand Smoke: Yes Diet: regular caffeine: Yes Dental Care, Regularly: Yes Physical Activity Frequency: Does not Exercise Seatbelt Use: always Sunscreen Use: Yes Assistive Devices: Glasses Assistive Devices Comment: reading glasses Physical Exam Physical Exam: Examination of the left shoulder reveals limitation and weakness of the supraspinatus, infraspinatus, and subscapularis. Results & Data Diagnostic Findings Previous x-rays of the left shoulder from October 2022 were reviewed. Minimal glenohumeral joint arthritis. No obvious proximal migration humeral head. MRI of the left shoulder from January 2023 was independently interpreted by me. It shows a massive, full-thickness, retracted rotator cuff tear. Rotator cuff tendon is retracted to the level of the glenoid rim. There is fairly severe fatty atrophy of the supraspinatus and upper border of the subscapularis muscles. Milder fatty atrophy of the infraspinatus muscle. There is obvious proximal migration of the humeral head. Mild glenohumeral joint arthritis.
[~2023-04-16 06:46] MED LIST changes: +ACETAMINOPHEN 500 MG TAB PO SCH; -ASPI325T4 PO; -ATOR80TA PO; +BUPIVACAINE 0.5 % 5 MG/1 ML PF 10ML VIAL ONE; -BYS/5 PO; +CeleBREX 200 MG CAP PO SCH; -EPP3/2 IM; -FAMO20TA11 PO; +FAMOTIDINE 20 MG TAB PO SCH; +GABAPENTIN 600 MG DOSE PO SCH; -HYDR25TA5 PO; -IBUP-1050 PO; -LOSA100T65 PO; +LR 15ML/HR IV SCH; +LR 60ML/HR IV SCH; -MAGN400T6 PO; +METOCLOPRAMIDE HCL 10 MG TABLET PO SCH; -OMEG120013 PO; +TRANEXAMIC ACID 1,000 MG **IV Pre-op IV SCH; -[UNRECOGNIZED DRUG - CODE] PO; +ceFAZolin 2000MG 2,000 MG/15 ML SYR IV SCH; +dexAMETHasone 4 MG TAB PO SCH
--- NOTE | 2023-04-16 07:32 | History & Physical Bridge Note ---
Date of Service April 16, 2023 History & Physical Bridge Note I have examined the patient, reviewed the History & Physical and in the interval since the performance of the History & Physical I have noted the following changes of clinical significance: no changes noted
[2023-04-16] MEDS ORDERED: DEXAMETHASONE SOD INJ 4 MG/ML VIAL ONE (07:50)
[2023-04-16] MEDS ORDERED: ONDANSETRON INJ 2 MG/ML 2 ML VIAL ONE (07:50)
[2023-04-16] MEDS ORDERED: LIDOCAINE 2% 2 ML VIAL/AMP(20MG/ML) INFIL ONE (07:50)
[2023-04-16] MEDS ORDERED: PROPOFOL IV EMULSION 10 MG/ML 20 ML VIAL IV ONE (07:50)
[2023-04-16] MEDS ORDERED: ROCURONIUM BROMIDE 10 MG/ML 5 ML VIAL IV ONE (07:50)
[2023-04-16] MEDS ORDERED: fentaNYL citrate PF 100 MCG/2 ML VIAL ONE (07:51)
[2023-04-16] MEDS ORDERED: MIDAZOLAM HCL 1 MG/ML 2ML VIAL ONE (07:51)
[2023-04-16] MEDS ORDERED: ePHEDrine sulfate 50 MG/5 ML SYR ONE (08:52)
[2023-04-16] MEDS ORDERED: NEOSTIGMINE METHYLSULFATE 1 MG/ML 10ML VIAL ONE (09:59)
[2023-04-16] MEDS ORDERED: GLYCOPYRROLATE 0.2 MG/ML VIAL ONE (09:59)
[2023-04-16] MEDS ORDERED: fentaNYL citrate PF 100 MCG/2 ML VIAL IV PRN (10:00)
[2023-04-16] MEDS ORDERED: HYDROmorphone INJ 2 MG/ML SYR/VIAL IV PRN (10:00)
[2023-04-16] MEDS ORDERED: ePHEDrine sulfate 50 MG/ML AMP IV PRN (10:00)
[2023-04-16] MEDS ORDERED: ATROPINE SULFATE 0.1 MG/ML 10ML SYR IV PRN (10:00)
[2023-04-16] MEDS ORDERED: ONDANSETRON INJ 2 MG/ML 2 ML VIAL IV PRN ×2 (10:00→11:42)
--- NOTE | 2023-04-16 10:02 | Operative Report ---
Post Operative Report Pre & Post Diagnosis Operation Date: 04/16/23 08:15 Pre-Op Diagnosis: Left shoulder rotator cuff tear arthropathy Post-Op Diagnosis: Left shoulder rotator cuff tear arthropathy I identified the patient and participated in the time-out.: Yes Procedure Operation Date: 04/16/23 08:15 Actual Procedures Left reverse total shoulder arthroplasty (84066) Open biceps tenodesis (66610) - Camacho Emanuel M.D. Surgeon Camacho Emanuel MD [employer] Sales Rep Eriberto Vyas PA-C Estimated Blood Loss 50 Findings Consistent with Post-Op Diagnosis Specimens None Drains None Anesthesia Type General Regional Complications none Disposition Disposition: Recovery Room Indications Ms. Foss is a 78-year-old female with chronic left shoulder pain and weakness. History, clinical exam, and imaging were consistent with the above diagnosis. Risks, benefits, and alternatives of surgery were explained in detail. The patient understood all this and wished to proceed. Description of Procedure Components Implanted: Tornier Reverse Total Shoulder implants Perform glenoid baseplate: 25mm, 15 degree full wedge with 6.5mm central screw and 5.0mm peripheral screws x 4 Glenosphere: 36mm standard Ascend Flex humeral stem: 1B Standard length (66mm) Humeral tray: 3.5 mm offset, +0mm thickness Polyethylene insert: 36mm, +6mm thickness Patient was identified in the preoperative holding area. Operative extremity was marked. Regional blockade was given by the Anesthesia Staff. Patient was then brought back to the operating room, and general anesthesia was induced without complication. Appropriate weight-based dose of Ancef was infused intravenously for antibiotic prophylaxis. The patient was then placed in the beachchair position. Left arm was then prepped and draped in a standard sterile fashion using Chlorhexidine prep. A standard deltopectoral incision was made through the skin and subcutaneous tissue. The cephalic vein was identified and retracted medially. Small branches to the deltoid were coagulated as necessary. The clavipectoral fascia was then incised and the subdeltoid space was opened. The rotator cuff was found to be deficient, and I therefore decided to perform a reverse total shoulder arthroplasty as planned preoperatively. The biceps tendon was identified within the bicipital groove and tenodesed at the superior border of the pectoralis tendon with #2 FiberWire suture. The biceps tendon was then divided proximal to the tenodesis site and the rotator interval was opened. The proximal portion of the biceps tendon was excised. The remaining subscapularis tendon was elevated subperiosteally off of the lesser tuberosity. The glenohumeral joint was then dislocated, and large osteophytes were debrided with a ronguer. The intramedullary canal of the humerus was then opened with a canal finder. The humeral head cut was then made in the appropriate inclination and version using the cutting guide. The humeral canal was then sequentially broached to the appropriate size. A protective cap was then placed on top of the humeral trial. I then turned my attention to the glenoid. The proximal stump of the biceps tendon was excised, along with the labrum circumferentially around the glenoid. The Blueprint drill guide was then positioned on the glenoid, and the guidepin was then inserted. The 15 degree angled reamer was then inserted over the guidepin and an reamed to an appropriate depth. The central screw hole was drilled, and appropriate length 6.5mm central screw was selected. The baseplate was then implanted into place according to our preoperative Blueprint plan by tightening down the central screw. A peripheral 5mm nonlocking screw was placed postero-superiorly first for additional compression of the baseplate, and then additional locking 5 mm peripheral screws were placed to complete fixation of the baseplate. Glenosphere was then impacted and secured. A trial humeral tray and insert were placed on the trial humeral stem, and a trial reduction was carried out. Once I achieved acceptable joint stability and range of motion with the trial implants, the final humeral implants were assembled on the back table and then impacted into position. The shoulder was then reduced and taken through full range of motion to ensure good stability and acceptable motion. Wound was then copiously irrigated with sterile saline. Deep fascia was closed with 0 V-lock suture. Subcutaneous tissue was closed with 2-0 V-lock, and skin was closed with 3-0 V-lock. Skin was then sealed with Dermabond. Sterile dressings were then applied with a waterproof silver-impregnated dressing, and the arm was placed into a sling. The patient was awakened from anesthesia and taken to the Post Anesthesia Care Unit in stable condition. There were no immediate complications from the procedure. I was present and scrubbed for the entire procedure, with the exception of final skin closure and dressing application. Due to the complex nature of the procedure, the entire surgery was performed with the operational assistance of Eriberto Vyas PA-C. The clinic assistant, under direct supervision, was involved in the performance of all aspects of the surgical procedure including hemostasis, tissue incision and retraction, instrument management, patient positioning, and wound closure. I attest to the content of the Intraoperative Record and any orders documented therein. Any exceptions are noted below.
--- NOTE | 2023-04-16 10:53 | Anesthesiology Progress Note ---
Date of Service April 16, 2023 Anesthesia Post Procedure Vital Signs Vital Signs: Temp Pulse Pulse Resp BP Pulse Ox O2 Del Method 04/16/23 10:45 36.6 C 83 13 151/71 H 96 Room Air 04/16/23 10:35 85 13 150/70 H 97 Room Air 04/16/23 10:25 84 18 140/71 100 Nasal Cannula 04/16/23 10:16 36.1 C L 86 16 149/71 H 98 Nasal Cannula 04/16/23 07:16 36.7 C 76 20 164/90 H 99 Room Air O2 Flow Rate 04/16/23 10:45 04/16/23 10:35 04/16/23 10:25 5 04/16/23 10:16 5 04/16/23 07:16 Pain Intensity Left Shoulder: Pain Intensity: 6 Right Shoulder: Pain Intensity: 6 Transfer of Care Handoff Completed per policy Notes Mental Status: alert / awake / arousable and participated in evaluation Patient Amnestic to Procedure: Yes Nausea / Vomiting: improving with treatment Pain: adequately controlled and improving with treatment Airway Patency, RR, SpO2: stable & adequate BP & HR: stable & adequate Hydration State: stable & adequate Anesthetic Complications: no major complications apparent and Pt Satisfied with anesthetic care Notes: Pt interscalene block is functioning well. Arm in sling
--- NOTE | 2023-04-16 11:12 | XRay Report ---
LEFT SHOULDER 2 VIEWS CLINICAL HISTORY: Postoperative examination. FINDINGS: 2 portable views of the left shoulder are obtained. The skeletal structures are osteopenic. A left shoulder arthroplasty is in near anatomic alignment. No acute fracture is identified. Minimal degenerative change is seen at the acromioclavicular joint. Subcutaneous gas and soft tissue edema o verlying the left shoulder are expected postsurgical changes. The imaged left lung parenchyma appears clear noting basilar atelectasis. IMPRESSION: Expected postoperative findings status post left shoulder arthroplasty. No acute fracture is seen. Electronically signed by: Krzysztof Pretty M.D. 04/16/2023 11:11 AM
[2023-04-16] MEDS ORDERED: bisacodyL 10 MG SUPP PR PRN (11:42)
[2023-04-16] MEDS ORDERED: METOCLOPRAMIDE HCL INJ 5 MG/ML 2 ML VIAL IV PRN (11:42)
[2023-04-16] MEDS ORDERED: oxyCODONE HCL IR 5 MG TAB (IMMEDIATE RELEASE) PO PRN (11:42)
[2023-04-16] MEDS ORDERED: MAGNESIUM HYDROXIDE SUSP 30 ML UDC PO PRN (11:42)
[2023-04-16] MEDS ORDERED: NALOXONE HCL 0.4 MG/1 ML VIAL/CARP IV PRN (11:42)
[2023-04-16] MEDS ORDERED: EPINEPHrine INJ 1 MG/ML AMP IM PRN (12:12)
[2023-04-16] MEDS: SODIUM CHLORIDE 0.9% 1,000 ML IV SCH ×2 (12:18→20:26)
[2023-04-16] MEDS: IBUPROFEN 600 MG TAB PO SCH ×3 (12:30→23:39)
[2023-04-16] MEDS: ACETAMINOPHEN 500 MG TAB PO SCH ×3 (13:45→23:39)
[2023-04-16] MEDS: ceFAZolin 1000MG 1,000 MG/7.5 ML SYR IV SCH ×2 (16:08→23:39)
[2023-04-16] MEDS: DOCUSATE SODIUM 100 MG CAP PO SCH (20:25)
[2023-04-16] MEDS ORDERED: SENNA 8.6 MG TAB PO SCH (21:00)
[2023-04-16] MEDS ORDERED: LOSARTAN/HCTZ 50/12.5MG TAB PO SCH (21:00)
[2023-04-16] MEDS ORDERED: METOPROLOL SUCC 50MG EXT REL TAB PO SCH (21:00)
[2023-04-17] MEDS: ACETAMINOPHEN 500 MG TAB PO SCH ×2 (05:38→11:58)
[2023-04-17] MEDS: IBUPROFEN 600 MG TAB PO SCH ×2 (05:39→11:58)
[2023-04-17 07:05] LABS: Basophils # (auto) 0.02 K/uL (0.00-0.20); Basophils % (auto) 0.1 %; Hematocrit (blood only) 32.6 % (37.0-47.0); Hemoglobin 11.1 g/dl (12.0-16.0); Immature Granulocytes # (auto) 0.13 K/uL (0.01-0.20); Immature Granulocytes % (auto) 0.7 %; Lymphocytes # (auto) 1.63 K/uL (1.20-3.40); Lymphocytes % (auto) 8.7 %; Mean Corpuscular Hemoglobin 32.6 pg (25.0-34.0); Mean Corpuscular Volume 95.9 fL (80.0-100.0); Mean Platelet Volume 10.9 fL (9.4-12.4); Monocytes # (auto) 1.03 K/uL (0.11-0.59); Monocytes % (auto) 5.5 %; Neutrophils # (auto) 16.02 K/uL (1.40-6.50); Platelet Count 277 K/uL (130-400); RDW Coefficient of Variation 11.9 % (11.5-14.5); RDW Standard Deviation 42.3 fL (36.4-46.3); White Blood Count 18.83 K/ul (4.8-10.8)
[2023-04-17 07:30] LABS: BUN Creatinine Ratio 24.7 (10-20); Calcium 8.4 mg/dl (8.6-10.3); Creatinine Clr Calc Pharmacy 22.4 ml/min; Est GFR (African American) 29.7 ml/min; Est GFR (Non-African American) 25.6 ml/min
--- NOTE | 2023-04-17 08:02 | Orthopedic Progress Note ---
Date of Service April 17, 2023 Assessment & Plan (1) Status post reverse arthroplasty of left shoulder: Plan: 78 yo female stable POD #1 s/p left reverse TSA 1. Med management 2. DVT prophylaxis- ASA, SCDs 3. PT/OT 4. D/C planning- home w/ OPPT Admission and Anticipated Discharge Date Admission Date: April 16, 2023 Subjective Pt resting in chair, pain controlled, denies compalints Physical Exam Physical Exam: Silverlon dressing in place, fingers mobile, feeling altered but improving Results & Data Vital Signs (Past 12 Hours) Vital Signs Temp Pulse Resp BP Pulse Ox O2 Del Method 04/17/23 03:30 36.6 C 66 16 118/65 97 Room Air 04/16/23 23:29 37.0 C 76 16 147/76 H 94 Room Air 04/16/23 20:50 Room Air Laboratory Results 04/17/23 Range/Units 06:26 WBC 18.83 H (4.8-10.8) K/ul RBC 3.40 L (4.20-5.40) M/uL Hgb 11.1 L (12.0-16.0) g/dl Hct 32.6 L (37.0-47.0) % MCV 95.9 (80.0-100.0) fL MCH 32.6 (25.0-34.0) pg MCHC 34.0 (32.0-36.0) g/dL RDW Std Deviation 42.3 (36.4-46.3) fL RDW Coeff of Dilip 11.9 (11.5-14.5) % Plt Count 277 (130-400) K/uL MPV 10.9 (9.4-12.4) fL Immature Gran % (Auto) 0.7 % Neut % (Auto) 85.0 % Lymph % (Auto) 8.7 % [place] % (Auto) 5.5 % Eos % (Auto) 0.0 % Baso % (Auto) 0.1 % Neut # (Auto) 16.02 H (1.40-6.50) K/uL Lymph # (Auto) 1.63 (1.20-3.40) K/uL [place] # (Auto) 1.03 H (0.11-0.59) K/uL Eos # (Auto) 0.00 (0.00-0.50) K/uL Baso # (Auto) 0.02 (0.00-0.20) K/uL Immature Gran # (Auto) 0.13 (0.01-0.20) K/uL Sodium 137 (136-145) mmol/L Potassium 4.0 (3.5-5.1) mmol/L Chloride 103 (98-107) mmol/L Carbon Dioxide 23 (21-32) mmol/L Anion Gap 11 (3-11) BUN 46 H (6-23) mg/dl Creatinine 1.86 H (0.6-1.2) mg/dl Est Cr Clr Drug Dosing 22.4 ml/min Est GFR ( Amer) 29.7 ml/min Est GFR (Non-Af Amer) 25.6 ml/min BUN/Creatinine Ratio 24.7 H (10-20) Glucose 110 H (70-99(Fasting)) mg/dl Calcium 8.4 L (8.6-10.3) mg/dl
[2023-04-17] MEDS ORDERED: MULTIVITAMIN TAB PO SCH (09:00)
[2023-04-17] MEDS ORDERED: NON-FORMULARY MEDICATION (Mecobalamin (Vitamin B12) 1,000 mcg tablet,disintegrating) SL SCH (09:00)
[2023-04-17] MEDS ORDERED: ATORVASTATIN 40 MG TAB PO SCH (09:00)
[2023-04-17] MEDS ORDERED: OMEGA-3 (PURIFIED FISH OIL) 1 GM CAP PO SCH (09:00)
[2023-04-17] MEDS ORDERED: ASPIRIN 325 MG ECTAB PO SCH (09:00)
[2023-04-17] MEDS ORDERED: CHOLECALCIFEROL 1,000 UNITS 25 MCG TAB PO SCH (09:00)
[2023-04-17] MEDS: DOCUSATE SODIUM 100 MG CAP PO SCH (09:03)
--- NOTE | 2023-04-17 16:52 | Discharge Summary ---
Date of Service April 17, 2023 Admission HPI Per Admitting Provider Ms. Foss returns for her left shoulder. I have previously seen her for her right. Her left shoulder pain started around September 2022 without any obvious injury but with gradual progressive worsening. She received a subacromial steroid injection from NATALIIA Vyas in October with no significant improvement in her pain. She has had noticeable weakness and progressively worsening pain in the left shoulder. It is currently waking her up at night. Her left shoulder is hurting her much worse than her right is right now. She has peripheral vascular disease and has had bilateral carotid endarterectomies many years ago. She is followed regularly by her public policy mediator, Dr. Plascencia. She denies any coronary artery disease of moderate cardio infarction. She takes aspirin 81 mg daily. She denies history of diabetes. Principal Diagnosis Left shoulder rotator cuff tear arthropathy Discharge Data Allergies Allergy/AdvReac Type Severity Reaction Status Date / Time bee venom protein (honey bee) Allergy Severe Anaphylaxis Verified 04/16/23 07:11 Procedures Performed Operation Date: 04/16/23 08:15 Actual Procedures p Left Reverse Total Shoulder Arthroplasty(Left) - Camacho Emanuel M.D. Ordered Studies 04/16/23 05:00 US - OR guided needle placemen Routine Hospital Course (1) Rotator cuff tear arthropathy of left shoulder: Patient underwent a left reverse total shoulder arthroplasty on the date of admission. Patient tolerated the procedure well and was transferred up to the general orthopedic surgery floor in stable condition. Perioperative antibiotic coverage was initiated, and continued for 24 hours postoperatively. DVT prophylaxis was initiated consisting of SCDs and aspirin 325 mg daily. Perioperative pain control regimen was transitioned to strictly oral pain medications by postoperative day 1. On postoperative day 1 the patient was doing very well. Pain was well controlled, and patient was mobilizing well with therapy. Patient was determined be safe and ready for discharge to home. Total Time Total Time Spent Total Time Spent (In Minutes): 15 Discharge Plan Discharge Items Patient Disposition: Home - Self-Care Reason For Visit: Left Shoulder Rotator Cuff Arthropathy Discharge Diagnosis: Left shoulder rotator cuff tear arthropathy Activity: Per Instructions section Non-emergency contact: Surgeon Call non-emergency contact if: your pain is not controlled, your temperature is above 101.5, your wound has increased redness and your wound has increased drainage Follow-up/Referrals: Naina Hernandez MD [Primary Care Provider] - Camacho Emanuel M.D. [Physician] - Diet: Heart Healthy [facility] Attending Provider Instructions: Things to Watch Out For -Go to the Emergency Room if you have sudden onset of nausea, vomiting, chest pain, shortness of breath, or uncontrollable pain. -Call the clinic or go to the Emergency Room if you have a sudden increase in the amount of wound drainage or the drainage becomes thick, yellow or green, or foul-smelling. -For routine questions, call the clinic at [phone] during regular business hours (8am-5pm). For urgent issues after regular business hours, you may call the clinic to be connected to the on-call physician. Dressings -A special waterproof, silver-impregnated dressing was placed on your shoulder. Keep this dressing in place for 1 week after surgery. You may shower with the waterproof dressing in place, but do not soak the dressing in the bathtub or pool. -One week after surgery, you may remove the waterproof dressing. You may continue to shower, and let water run BRIEFLY over the incision, but do not soak the incision in the bathtub or pool for 2 weeks. You may also gently clean the incision with mild soap and water; pat the incision dry after cleaning-do not rub the incision. Apply a new dressing daily thereafter. Shoulder Exercises -Keep your operative shoulder in the sling for comfort, except as detailed below. -You should come out of the sling 4-5 times a day for passive pendulum exercises: lean over and swing your arm in a circular pattern. -You should also do active-assisted forward flexion exercises: use your opposite hand to lift your operative arm forward to 90 degrees. -Do not flex your elbow (curl motion) or supinate your forearm (rotating palm up) against resistance. -Do not use your arm to push yourself up out of bed or up from a seated position. Ice Pack -You may use an ice pack for pain relief. You should use it 20-30 minutes at a time. Place a towel between the ice pack and your skin to prevent frostbite. -You should use the ice pack fairly regularly for the first 1-2 weeks after surgery to help reduce pain and inflammation. -About 2 weeks after your surgery, you should start using heat to loosen up your shoulder prior to doing your stretching exercises, then use the cooling sleeve after your exercises are complete to reduce swelling and pain. Pain Medicines -Your prescriptions for pain medications have already been sent to the pharmacy on file at [facility] [place]. -You have been prescribed an anti-inflammatory (Motrin/ibuprofen) and a non- narcotic pain medicine (Tylenol/acetaminophen). These are your primary pain medications. Take them each every 6 hours as instructed. It is recommended that you stagger these medicines every 3 hours (i.e. take ibuprofen at 8:00 am, then acetaminophen at 11:00 am, then ibuprofen at 2:00 pm, etc) -DO NOT take any additional anti-inflammatories (Advil, Aleve/naproxen, Mobic/meloxicam, Celebrex) or any additional Tylenol/acetaminophen products with these prescribed medications. -You have also been prescribed an additional narcotic pain medication (oxycodone). Take this medicine ONLY for breakthrough pain not controlled by the ibuprofen and acetaminophen. -Do not drive or operate heavy machinery while taking the narcotic medication. -Common side effects of narcotic pain medicines include itching, nausea, constipation, and feeling "loopy". However, if you develop a rash or hives, stop taking the medicine and call the clinic. If you develop swelling in your throat or difficulty breathing, go to the Emergency Room or call 911 IMMEDIATELY. -You may take over the counter stool softeners if needed for constipation. Aspirin -Take a full strength (325mg) aspirin every day for 4 weeks (28 days) to prevent blood clots. -If you were taking a baby aspirin (81mg) prior to surgery, you may resume taking this 81mg dose after you complete the 28-day course of the 325mg strength dose; do not take the 325mg dose in addition to your 81mg dose. -Be aware that you will bruise easier while taking Aspirin; this is normal. However, if you develop a significantly large area of swelling after an injury, or have a cut that will not stop bleeding, call the clinic or go to the Emergency Room immediately. Pending Studies at Discharge: No Stand-Alone Forms: My [facility] [employer] Medications and DC Order Prescriptions: Continued magnesium citrate,mag oxide 250 mg capsule 250 mg PO QAM Beet Root 1,000 mg PO QAM multivitamin [Multiple Vitamins] tablet 1 tab PO QAM omega-3 acid ethyl esters 1 gram capsule 1 cap PO QAM famotidine 20 mg tablet 20 mg PO DAILY PRN (Reason: Heartburn) turmeric root extract 500 mg capsule 1,000 mg PO QAM mecobalamin (vitamin B12) 1,000 mcg tablet,disintegrating 1,000 mcg SL QAM cholecalciferol (vitamin D3) 1,000 unit capsule 1,000 units PO QAM epinephrine [EpiPen] 0.3 mg/0.3 mL Auto-Injector 0.3 mg IM Q4H PRN (Reason: Allergic Reaction) atorvastatin [Lipitor] 80 mg tablet 80 mg PO QAM metoprolol succinate 50 mg tablet extended release 24 hr 50 mg PO QPM losartan-hydrochlorothiazide 100-25 mg tablet 1 tab PO QPM Held aspirin 81 mg Capsule 81 mg PO QAM Hold Instructions: Resume on 05/14/23. Take the prescribed 325mg dose of aspirin instead of your normal 81mg dose for 4 weeks, then resume your normal 81mg dose after 4 weeks. Discontinued ibuprofen 200 mg Tablet 600 mg PO Q6H PRN (Reason: Pain) Discharge Orders: Discharge Order (Routine); Ordered 04/17/23 Ordered By: Eriberto Ch[place]/Other Patient Handouts: DVT Post Op Prevention, Shoulder Replacement Surg Recovery Admission Data Admit Date/Time: 04/16/23 10:20 Attending Provider: Camacho Emanuel Admit Provider: Camacho Emanuel Primary Care Provider: Naina Hernandez Other Interventions: Discharge Summary Assessment (RN) Last Done: 04/17/23 10:59
== END 2023-04-17 12:30 | disposition home or self-care (01) | DRG 483 ==
LOC: ASU 06:46 → 3E 10:20